=== PATIENT | female | born 1940 ===

== ENCOUNTER 2016-11-09 07:15 | Day surgery (SDC) | payer MEDICARE, OTHER ==
[2016-11-09 08:01] VITALS: BMI 28.3
[2016-11-09] MEDS ORDERED: Propofol 10 mg/ml Inj (20 ML) ONE (09:26)
[2016-11-09] MEDS ORDERED: Pantoprazole 40 mg EC Tab PO ONE (09:27)
[2016-11-09] MEDS ORDERED: Belladonna-Phenobarbital PO ONE (09:27)
--- NOTE | 2016-11-09 09:27 | CP.SDSHP ---
Same Day Surgery H & P - History Proposed Procedure: EGD Pre-Op Diagnosis: SEE NOTES - Previous Medical/Surgical History Cardiac: Hypertension Endocrine/Metabolic: Other Misc: Other Pain: 4.Moderate Pain - Allergies Allergies: Allergies apple Allergy (Verified 02/25/16 08:47) ANAPHYLAXIS brownlee Allergy (Verified 02/25/16 08:47) ANAPHYLAXIS lemon Allergy (Verified 02/25/16 08:47) ANAPHYLAXIS ORANGE Allergy (Verified 02/25/16 08:47) ANAPHYLAXIS pear Allergy (Verified 02/25/16 08:47) ANAPHYLAXIS pineapple Allergy (Verified 02/25/16 08:47) ANAPHYLAXIS - Physical Exam General Appearance: N Vital Signs: Vital Signs 11/09/16 11/09/16 08:23 09:20 Temperature 97.5 F L 97.5 F L Pulse Rate 80 80 Respiratory 16 16 Rate Blood Pressure 157/77 H 157/77 H O2 Sat by Pulse 98 99 Oximetry Mental Status: Alert & Oriented x3 Neuro: WNL Heart: Other Lungs: WNL GI: WNL - {Optional Preform as Required} Breast: WNL Abdomen: Other Rectal: Other Integument: WNL : WNL Ortho: Other ENT: WNL - Impression Pt. Evaluated Today:Candidate for Anesthesia & Procedure: Yes - Date & Time Time: :27 Short Stay Discharge - Short Stay Discharge Admitting Diagnosis/Reason for Visit: DYSPHAGIA Disposition: HOME/ ROUTINE
[2016-11-09] MEDS ORDERED: Lidocaine Hydrochloride 10 ML INJ ONE (09:38)
[2016-11-09 10:59] VITALS: O2SAT 99
[2016-11-09 11:05] VITALS: BP 145/71; PULSE 76; RESP 13; TEMP 97.5
== END 2016-11-09 10:20 | disposition home or self-care (01) ==
LOC: C.ENDO 07:15
PROVIDERS: ATTEND Specialist
DX: K20.9 Esophagitis, unspecified (principal); K44.9 Diaphragmatic hernia without obstruction or gangrene; I10 Essential (primary) hypertension; K29.70 Gastritis, unspecified, without bleeding
CPT/HCPCS: 43254; 88305; 88342; J2704; J3010

== ENCOUNTER 2017-02-22 06:11 | Day surgery (SDC) | payer MEDICARE, OTHER ==
[2017-02-22 06:47] VITALS: BMI 29.2
[2017-02-22] MEDS ORDERED: Propofol 10 mg/ml Inj (20 ML) ONE (08:24)
--- NOTE | 2017-02-22 08:34 | CP.SDSHP ---
Same Day Surgery H & P - History Proposed Procedure: COLONSCOPY Pre-Op Diagnosis: SEE NOTES - Allergies Allergies: Allergies apple Allergy (Verified 02/25/16 08:47) ANAPHYLAXIS brownlee Allergy (Verified 02/25/16 08:47) ANAPHYLAXIS lemon Allergy (Verified 02/25/16 08:47) ANAPHYLAXIS ORANGE Allergy (Verified 02/25/16 08:47) ANAPHYLAXIS pear Allergy (Verified 02/25/16 08:47) ANAPHYLAXIS pineapple Allergy (Verified 02/25/16 08:47) ANAPHYLAXIS - Physical Exam Vital Signs: Vital Signs 02/22/17 02/22/17 06:47 08:20 Temperature 97.8 F 97.8 F Pulse Rate 77 77 Respiratory 18 18 Rate Blood Pressure 152/77 H 152/77 H O2 Sat by Pulse 99 99 Oximetry Neuro: WNL Heart: Other Lungs: Other GI: WNL - {Optional Preform as Required} Breast: WNL Abdomen: Other Rectal: Other Integument: WNL : WNL Ortho: WNL ENT: WNL - Impression Pt. Evaluated Today:Candidate for Anesthesia & Procedure: Yes - Date & Time Time: 08:34 Short Stay Discharge - Short Stay Discharge Admitting Diagnosis/Reason for Visit: POLYP OF COLON Disposition: HOME/ ROUTINE
[2017-02-22] MEDS ORDERED: Belladonna-Phenobarbital PO STA (08:45)
[2017-02-22 09:10] VITALS: TEMP 96.8
[2017-02-22 09:50] VITALS: BP 154/75; PULSE 74; RESP 14; O2SAT 100
== END 2017-02-22 09:46 | disposition home or self-care (01) ==
LOC: C.ENDO 06:11
PROVIDERS: ATTEND Specialist
DX: K63.5 Polyp of colon (principal); K64.8 Other hemorrhoids; K57.30 Diverticulosis of large intestine without perforation or abscess without bleeding
CPT/HCPCS: 45380; 88305; J2704

== ENCOUNTER 2017-03-26 08:33 | Emergency (ER) | payer MEDICARE, OTHER ==
[2017-03-26 08:33] VITALS: BMI 29.2
--- NOTE | 2017-03-26 09:01 | C.PDOC ---
History Of Present Illness 76 yr old F c/o left scalp pain with radiation to left post neck for 10 days. Pt denies any trauma, fall, numbness or weakness; no nausea, vomiting, aura, no hx of migraines, no change of vision. Pt did not have similar symptoms in the past. Pain is worse on palpation and neck movement. Pt states she does not have a headache, she feels pain of the skin. Pt tried tylenol in the last few days without any relieve. No pain medicines taken today. Pt states she had a shingles vaccine at [facility] 2+months ago. 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 ) Onset/Duration Of Symptoms: Days (10), Persistent Current Symptoms Are (Timing): Still Present Severity: Severe Pain Scale Rating Of: 8 Quality: Sharp Preceeding Symptoms: None Past Medical History Reviewed: Historical Data, Nursing Documentation, Vital Signs Vital Signs: Last Vital Signs Temp 98.1 F 03/26/17 08:50 Pulse 73 03/26/17 10:03 Resp 16 03/26/17 10:03 BP 167/75 H 03/26/17 10:03 Pulse Ox 98 03/26/17 11:13 - Medical History PMH: Arthritis, Bronchitis, CAD, Colonic Polyps, Gastritis, GERD, HTN, Hypercholesterolemia Denies: Chronic Kidney Disease Surgical History: Endoscopy - [facility] Procedures CATARAC PHACOEMULS/ASPIR (01/22/14) CLOSED ENDOSCOPIC BIOPSY OF LARGE INTESTINE (04/16/14) INSERT LENS AT CATAR EXT (01/22/14) Family History: States: No Known Family Hx - Social History Hx Tobacco Use: No Hx Alcohol Use: No Hx Substance Use: No - Immunization History Hx Tetanus Toxoid Vaccination: No Hx Influenza Vaccination: No Hx Pneumococcal Vaccination: No Review Of Systems Except As Marked, All Systems Reviewed And Found Negative. Constitutional: Negative for: Fever Eyes: Negative for: Pain, Vision Change, Eyelid Inflammation ENT: Negative for: Ear Pain Cardiovascular: Negative for: Chest Pain Respiratory: Negative for: Cough ED Course And Treatment O2 Sat by Pulse Oximetry: 98 Pulse Ox Interpretation: Normal Progress Note: Pt treated with Toradol with improvement of symptoms. Reassessment Condition: Improved Disposition Counseled Patient/Family Regarding: Diagnosis - Disposition Referrals: Sekou Santos MD [Staff Provider] - Wilver Iniguez MD [Staff Provider] - Disposition: HOME/ ROUTINE Disposition Time: 09:24 Condition: STABLE Additional Instructions: SYMPTOMS ARE CONSISTENT WITH CERVICO-OCCIPITAL NEURALGIA, HOWEVER, IF RASH/ BLISTERS DEVELOP IT WOULD BE HERPES ZOSTER (SHINGLES), UNLIKELY DUE TO SHINGLES VACCINE 2 MONTHS AGO. TAKE IBUPROFEN 400 MG EVERY 6 HRS WITH FOOD NEEDED FOR PAIN. FOLLOW UP WITH DR. INIGUEZ FOR NEUROLOGY REFERRAL. IF SYMPTOMS GET WORSE OR ANY NEW CONCERNING SYMPTOMS DEVELOP RETURN TO ED. Forms: Gen Discharge Inst Japanese, [facility] (Japanese) Print Language: ALBANIAN - Clinical Impression Clinical Impression: Cervico-occipital neuralgia of left side
[2017-03-26 09:11] VITALS: RESP 16; TEMP 98.1
[2017-03-26 10:05] VITALS: BP 167/75; PULSE 73
[2017-03-26 11:11] VITALS: O2SAT 98
== END 2017-03-26 10:09 | disposition home or self-care (01) ==
LOC: C.ER 08:33
DX: M54.81 Occipital neuralgia (principal)
CPT/HCPCS: 96372; 99285; J1885

== ENCOUNTER 2017-04-09 07:11 | Emergency (ER) | payer MEDICARE, OTHER ==
[2017-04-09 07:23] VITALS: BMI 30.3
[2017-04-09 07:24] VITALS: BP 150/86; PULSE 79; RESP 18; TEMP 98.1; O2SAT 97
[2017-04-09] MEDS ORDERED: Acetaminophen-Codeine 300/30 mg Tab PO STA (09:45)
[2017-04-09] MEDS ORDERED: Acetaminophen-Codeine 300/30 mg Tab PO ONE (10:07)
--- NOTE | 2017-04-09 10:19 | C.PDOC ---
History Of Present Illness 76 year old female presents to ED for evaluation of left side neck and occiput pain that developed yesterday. Notes being seen here on 03/26/17 for similar symptoms. She states she has an appointment scheduled with a neurologist on , and that she has been taking Ibuprofen with minimal relief. Otherwise, patient denies slurred speech, visual changes, extremity weakness, sensory changes, facial droop, dizziness, falls/injury, chest pain, shortness of breath , palpitations, rash, or fever. Time Seen by Provider: 04/09/17 07:28 Chief Complaint (Nursing): Headache History Per: Patient History/Exam Limitations: no limitations Onset/Duration Of Symptoms: Days (1) Current Symptoms Are (Timing): Still Present Severity: Moderate Quality: "Pain" Preceeding Symptoms: denies: Visual Disturbances, Known Migraine Symptoms Associated Symptoms: denies: Photophobia, Blurred Vision, Nausea, Vomiting, Extremity Weakness Additional History Per: Patient Past Medical History Reviewed: Historical Data, Nursing Documentation, Vital Signs Vital Signs: Last Vital Signs Temp 98.1 F 04/09/17 07:23 Pulse 79 04/09/17 07:23 Resp 18 04/09/17 07:23 BP 150/86 04/09/17 07:23 Pulse Ox 97 04/10/17 09:53 - Medical History PMH: Arthritis, Bronchitis, CAD, Colonic Polyps, Gastritis, GERD, HTN, Hypercholesterolemia Surgical History: Endoscopy - [facility] Procedures CATARAC PHACOEMULS/ASPIR (01/22/14) CLOSED ENDOSCOPIC BIOPSY OF LARGE INTESTINE (04/16/14) INSERT LENS AT CATAR EXT (01/22/14) Family History: States: No Known Family Hx - Social History Hx Tobacco Use: No Hx Alcohol Use: No Hx Substance Use: No - Immunization History Hx Tetanus Toxoid Vaccination: No Hx Influenza Vaccination: No Hx Pneumococcal Vaccination: No Review Of Systems Except As Marked, All Systems Reviewed And Found Negative. Constitutional: Negative for: Fever, Chills Cardiovascular: Negative for: Chest Pain Respiratory: Negative for: Shortness of Breath Gastrointestinal: Negative for: Nausea, Vomiting Musculoskeletal: Positive for: Neck Pain (left side) Skin: Negative for: Rash, Bruising Neurological: Positive for: Headache (left occiput pain). Negative for: Weakness, Numbness, Change in Speech, Dizziness Physical Exam - Physical Exam Appears: Well, Non-toxic, Other (In mild discomfort) Skin: Normal Color, Warm, Dry, No Rash Head: Atraumatic, Normacephalic, Tenderness (mild TTP at left occipital scalp), No Swelling, No Abrasion, No Laceration Eye(s): bilateral: Normal Inspection, PERRL, EOMI Oral Mucosa: Moist Neck: Normal ROM, No Midline Cervical Tenderness, Paracervical Tenderness ((+) TTP at left lateral aspect of neck, along trapezius muscle, no erythema or swelling), No Step Off Deformity, Supple Chest: Symmetrical Cardiovascular: Rhythm Regular Respiratory: Normal Breath Sounds, No Rales, No Rhonchi, No Wheezing Back: Normal Inspection Extremity: Normal ROM, No Deformity Neurological/Psych: Oriented x3, Normal Speech, Normal Cognition, Normal Cranial Nerves, No Cerebellar Signs, Normal Motor, Normal Sensation Gait: Steady ED Course And Treatment O2 Sat by Pulse Oximetry: 97 (RA) Pulse Ox Interpretation: Normal Progress Note: Patient given IM toradol and PO flexeril. On reassessment, patient still c/o pain - PO tylenol #3 given. Reevaluation Time: 10:30 Reassessment Condition: Improved (Patient reassessed, is resting comfortably and states her pain has improved. Patient is well appearing and comfortable being discharged, vitals WNL. Rxs given for pain, and patient instructed to follow up with neurology as scheduled. She understands she should return to Ed if symptoms worsen.) Disposition Counseled Patient/Family Regarding: Diagnosis, Need For Followup, Rx Given - Disposition Referrals: Wilver Iniguez MD [Staff Provider] - Disposition: HOME/ ROUTINE Disposition Time: 10:30 Condition: STABLE Prescriptions: Acetaminophen with Codeine [Tylenol with Codeine #3 Tablet] 1 each PO Q6 PRN # 12 tablet PRN Reason: pain Cyclobenzaprine [Flexeril] 10 mg PO BID PRN #15 tab PRN Reason: Muscle Spasm Naproxen 375 mg PO BID PRN #20 tablet PRN Reason: pain Forms: [facility] (Greek) Print Language: TRINIDADIAN - POA Present On Arrival: None - Clinical Impression Clinical Impression: Neck muscle spasm, Neck pain, Occipital pain - Scribe Statement The provider has reviewed the documentation as recorded by the Gildardoibjono De Leon All medical record entries made by the Scribe were at my direction and personally dictated by me. I have reviewed the chart and agree that the record accurately reflects my personal performance of the history, physical exam, medical decision making, and the department course for this patient. I have also personally directed, reviewed, and agree with the discharge instructions and disposition.
== END 2017-04-09 10:33 | disposition home or self-care (01) ==
LOC: C.ER 07:11
DX: M54.2 Cervicalgia (principal); M62.838 Other muscle spasm; R51 Headache
CPT/HCPCS: 96372; 99285; J1885

== ENCOUNTER 2017-04-14 11:43 | Emergency (ER) | payer MEDICARE, OTHER ==
[2017-04-14 11:43] VITALS: BMI 30.3
[2017-04-14 11:53] VITALS: RESP 18
[2017-04-14] MEDS ORDERED: Lidocaine 5% Patch TD ONE ×2 (14:02→14:30)
[2017-04-14 14:19] VITALS: BP 146/83; PULSE 88; TEMP 97.8; O2SAT 96
--- NOTE | 2017-04-14 14:30 | MRI ---
PROCEDURE: MRI BRAIN WITHOUT CONTRAST HISTORY: Headache COMPARISON: Noncontrast head CT from 04/19/2013 TECHNIQUE: Multiplanar, multisequence MR images of the brain were obtained without intravenous contrast enhancement. FINDINGS: HEMORRHAGE: None DWI: No evidence of an acute or early subacute infarction. BRAIN PARENCHYMA: There are moderate chronic microangiopathic changes. There is no mass, mass effect or abnormal extra-axial fluid collection. There is a partially empty sella. There is mild cerebellar tonsillar ectopia. VENTRICLES: There is mild age-related global parenchymal volume loss and proportionate enlargement of the ventricles and cortical sulci. There are prominent perivascular spaces in the basal ganglia. CRANIUM: There is normal bone marrow signal pattern. ORBITS: Grossly unremarkable. PARANASAL SINUSES/MASTOIDS: Predominantly clear. VASCULAR SYSTEM: There are normal signal voids in the larger intracranial arteries. OTHER FINDINGS: None. IMPRESSION: No acute intracranial abnormality. Moderate chronic microangiopathic changes and moderate age-related global parenchymal volume loss.
--- NOTE | 2017-04-14 15:05 | C.PDOC ---
History Of Present Illness 76 y/o female c/o severe chronic headache for the last several weeks. Pain is to the entire head, "like a head band". Pain is an intermittent, pressure that is 10/10 and radiates to the left trapezious muscle. Patient was seen here twice before for the same complaints. Took Tylenol with relief. Patient was referred to neurologist that recommended to get an MRI. Denies dizziness, blurred vision, weakness, numbness, or tingling. No fever, chills, nausea, or vomiting. Time Seen by Provider: 04/14/17 12:00 Chief Complaint (Nursing): Headache History Per: Patient History/Exam Limitations: no limitations Onset/Duration Of Symptoms: Days, Intermittent Episodes Current Symptoms Are (Timing): Still Present Severity: Severe Pain Scale Rating Of: 10 Quality: Pressure Associated Symptoms: denies: Blurred Vision, Nausea, Vomiting, Extremity Weakness Recent travel outside of the [place]: No Additional History Per: Patient Past Medical History Reviewed: Historical Data, Nursing Documentation, Vital Signs Vital Signs: Last Vital Signs Temp 97.8 F 04/14/17 14:18 Pulse 88 04/14/17 14:18 Resp 18 04/14/17 14:18 BP 146/83 04/14/17 14:18 Pulse Ox 96 04/14/17 18:18 - Medical History PMH: Arthritis, Bronchitis, CAD, Colonic Polyps, Gastritis, GERD, HTN, Hypercholesterolemia Denies: Chronic Kidney Disease Surgical History: Endoscopy - [facility] Procedures CATARAC PHACOEMULS/ASPIR (01/22/14) CLOSED ENDOSCOPIC BIOPSY OF LARGE INTESTINE (04/16/14) INSERT LENS AT CATAR EXT (01/22/14) Family History: States: Unknown Family Hx - Social History Hx Tobacco Use: No Hx Alcohol Use: No Hx Substance Use: No - Immunization History Hx Tetanus Toxoid Vaccination: No Hx Influenza Vaccination: No Hx Pneumococcal Vaccination: No Review Of Systems Except As Marked, All Systems Reviewed And Found Negative. Constitutional: Negative for: Fever, Chills Eyes: Negative for: Vision Change Gastrointestinal: Negative for: Nausea, Vomiting Neurological: Positive for: Headache. Negative for: Weakness, Numbness, Dizziness, Other (Tingling) Physical Exam - Physical Exam Appears: Non-toxic, In Acute Distress (In pain) Skin: Warm, Dry Head: Atraumatic, Normacephalic Eye(s): bilateral: Normal Inspection, PERRL, EOMI Oral Mucosa: Moist Throat: Normal, No Erythema Cardiovascular: Rhythm Regular, No Murmur Respiratory: Normal Breath Sounds, No Rales, No Rhonchi, No Wheezing Back: Paraspinal Tenderness (Left trapezious muscle) Neurological/Psych: Oriented x3, Normal Speech, Normal Cognition, Other (No focal deficit) ED Course And Treatment O2 Sat by Pulse Oximetry: 96 (RA) Pulse Ox Interpretation: Normal Medical Decision Making Medical Decision Making: Plans: * Lidoderm * Tylenol * Valium * Reglan * Toradol * MRI MRI showed no acute pathologies. Headache was relieved with meds. Tenderness to the left trapezious muscles relieved with Valium and Lidoderm packs. Patient notes feeling better and was discharged home and instructed to follow up with his PMD for further evaluation. Disposition Counseled Patient/Family Regarding: Studies Performed, Diagnosis, Need For Followup, Rx Given - Disposition Referrals: Jose Juan Nowak MD [Staff Provider] - Disposition: HOME/ ROUTINE Disposition Time: 15:03 Condition: STABLE Prescriptions: diaZEpam [Valium] 5 mg PO TID #12 tab Ibuprofen [Motrin] 600 mg PO TID #15 tab Instructions: Acute Headache (ED), Cervical Radiculopathy (ED) Forms: Gen Discharge Inst Pakistani, [facility] (Pakistani) - POA Present On Arrival: None - Clinical Impression Clinical Impression: Headache, Muscle spasm - Scribe Statement The provider has reviewed the documentation as recorded by the Scribe Dale richmond All medical record entries made by the Scribe were at my direction and personally dictated by me. I have reviewed the chart and agree that the record accurately reflects my personal performance of the history, physical exam, medical decision making, and the department course for this patient. I have also personally directed, reviewed, and agree with the discharge instructions and disposition.
== END 2017-04-14 15:09 | disposition home or self-care (01) ==
LOC: C.ER 11:43
DX: R51 Headache (principal); M62.838 Other muscle spasm; E78.00 Pure hypercholesterolemia, unspecified; I10 Essential (primary) hypertension; I25.10 Atherosclerotic heart disease of native coronary artery without angina pectoris
CPT/HCPCS: 70551; 96372; 99284; J1885